=== PATIENT | male | born 1990 | race Caucasian/White ===

== ENCOUNTER 2020-04-13 08:17 | Observation (INO) ==
--- OUTSIDE RECORDS SUMMARY | 2020-04-13 08:20 | External Medical Summary | Continuity of Care Document ---
:1990 Author Name Shari Camarillo, Provider Address Unavailable Unavailable , Care Team Providers Name Role Phone Shari Camarillo, Provider Unavailable [email or web address] Active medical history not documented Allergies and Adverse Reactions Allergy history not documented Medications Medications not documented Procedures Procedures not documented Immunizations Immunizations not documented Plan of Treatment Planned Observations Planned Goals not documented Results No Known Results Results not documented
[2020-04-13] MEDS ORDERED: SODIUM CHLORIDE 0.9% 1000ML 1,000 ML IV ONE (08:40)
[2020-04-13] MEDS ORDERED: cefOXitin 2,000 MG/60 ML BAG IV STA (08:42)
--- NOTE | 2020-04-13 08:49 | Emergency Department Note ---
History of Present Illness General Chief complaint: Rectal Pain Stated complaint: abscess on back Time Seen by Provider: 04/13/20 08:26 Source: patient Mode of arrival: ambulatory Limitations: no limitations History of Present Illness Provider Complaint: + abscess/boil Onset (ago): 3 day(s) Tetanus up to date: yes Location: + buttocks Severity: severe Maximum Pain Intensity: 8 Current Pain Intensity: 8 Quality: + aching and + sharp Pain Consistency: + constant Relieved By: + none Exacerbated By: + palpation and + movement Context: + other (hx. perirectal abscess with fistula) Associated symptoms: + denies other symptoms Treatments prior to arrival: + other (epsom salt baths, cleansing the area, soap and water, warm soaks) HPI narrative: This 29-year-old male patient with significant past medical history of perirectal abscess with fistula presents to the emergency department today via private vehicle committed by his mother for evaluation of a perirectal abscess. Patient states he has had 3-4 in the past, and has been seen by Dr. Sanchez as well as colorectal surgery in [place], requiring multiple surgeries for some of his abscesses to be drained. He states he did have a colonoscopy "a few years ago" which confirmed a fistula, but was negative for any evidence of Crohn's disease. The patient states his last abscess requiring drainage was 3 years ago. He states he does frequently get sensation of abscesses, but usually they open on their own after warm soaks with Epsom salts and cleansing the area. The patient states 2 to 3 days ago, he developed pain and symptoms suspicious for abscess. He states he has developed worsening pain since that time. He has been taking Advil and Tylenol without relief of his symptoms. He denies any fever or chills. He denies any trauma. He denies any discharge or open wounds associated with abscess. He denies any abdominal pain. There is pain extending to the perineum. Patient rates his pain an 8/10. Home Medications Home Medications Medication Instructions Recorded Confirmed Type ibuprofen [Advil] 200 mg PO Q6H PRN 04/13/20 04/13/20 History Allergies Allergy/AdvReac Type Severity Reaction Status Date / Time No Known Allergies Allergy Severe NONE Unverified 04/13/20 09:04 Past Med/Surg History Medical History Perirectal abscess Social History Smoking Status: Never smoker Feels Safe at Home: Yes Review of Systems A total of 10 systems reviewed and were otherwise negative Physical Exam Vital Signs: Vital Signs - 24 hr 04/13/20 08:23 04/13/20 09:22 04/13/20 09:23 Temperature 37.4 C Temperature Source Oral Pulse Rate 103 H 83 Pulse Rate [Apical ] 84 Pulse Rate from Sp O2 Sensor Respiratory Rate 20 20 20 Respiratory Effort / Characteristics Non-Labored Sponta neous Respiratory Depth Normal Respiratory Patter n Regular Blood Pressure 145/90 H Blood Pressure [Le ft Arm] 135/94 Blood Pressure Sarah n 108 Blood Pressure Sarah n [Left Arm] 107 Pulse Oximetry 98 96 96 Oxygen Delivery Me thod Room Air Room Air Room Air Sepsis Recent Feve r Within 48 Hours No Sepsis New/Unexpla ined Change in Men erik Status No Sepsis Action Take n by Nursing No Action Required 04/13/20 09:37 04/13/20 09:40 04/13/20 10:00 Temperature Temperature Source Pulse Rate 88 83 80 Pulse Rate [Apical ] Pulse Rate from Sp O2 Sensor 88 82 80 Respiratory Rate 16 13 21 Respiratory Effort / Characteristics Respiratory Depth Respiratory Patter n Blood Pressure 125/82 130/83 Blood Pressure [Le ft Arm] Blood Pressure Sarah n 107 94 Blood Pressure Sarah n [Left Arm] Pulse Oximetry 99 98 98 Oxygen Delivery Me thod Sepsis Recent Feve r Within 48 Hours Sepsis New/Unexpla ined Change in Men erik Status Sepsis Action Take n by Nursing 04/13/20 10:01 04/13/20 10:30 Temperature Temperature Source Pulse Rate 79 80 Pulse Rate [Apical ] Pulse Rate from Sp O2 Sensor 79 82 Respiratory Rate 20 17 Respiratory Effort / Characteristics Respiratory Depth Respiratory Patter n Blood Pressure 159/95 H Blood Pressure [Le ft Arm] Blood Pressure Asrah n 117 Blood Pressure Sarah n [Left Arm] Pulse Oximetry 97 99 Oxygen Delivery Me thod Sepsis Recent Feve r Within 48 Hours Sepsis New/Unexpla ined Change in Men erik Status Sepsis Action Take n by Nursing Physical Exam: VITALS: Vitals are noted on the nurse's note and reviewed by myself. Vital signs stable. GENERAL: This is a 29-year-old white male, in no acute distress, nondiaphoretic, well-developed well-nourished. SKIN: The skin was without rashes, erythema, edema, or bruising. There is no tenting of the skin. Capillary refill less than 2 seconds. HEAD: Normocephalic atraumatic. EYES: Conjunctivae without injection, sclerae without icterus. NECK: Supple without nuchal rigidity. No lymphadenopathy. HEART: Regular rate and rhythm without murmurs gallops or rubs. LUNGS: Clear to auscultation bilaterally without wheezes, rales or rhonchi. No retractions or accessory muscle use. ABDOMEN: Positive bowel sounds x 4. Normal tympanic percussion. Soft, nontender, without masses or organomegaly. No guarding or rebound tenderness. RECTAL - No rectal fissures. No skin tags appreciated. No active bleeding. There is a perirectal abscess noted at the 9:00 position and extending to the perineum. There is erythema and induration, but no pointing or drainage. GENITOURINARY - No testicular tenderness to palpation appreciated diffusely. No palpable masses. MUSCULOSKELETAL: No muscle atrophy, erythema, or edema noted. Full range of motion without joint tenderness in all extremities. No tenderness to palpation. Normal gait. Strength 5/5 throughout. NEURO: Patient was alert and oriented to person place and time. Normal sensation to light and sharp touch. No focal neurological deficits. Course Course The patient was seen and evaluated as above. An order was placed for continuous cardiac monitoring. The monitor shows a sinus tachycardia at a rate of 103 bpm. IV access obtained, labs drawn. Patient medicated with IV fluids, morphine, and cefoxitin. Imaging performed and reviewed by myself and radiologist as noted. Labs reviewed by myself. I discussed the findings with the patient at bedside. I discussed the case with Alicia Smith PA-C from general surgery. She will see and evaluate the patient. I again spoke with Alicia, who advised that the patient would be going to the operating room for further management of the abscess. She did request the patient be given a dose of Zosyn as well as rapid Covid-19 test completed. Administered Medications Morphine Sulfate (Morphine Sulfate 4 Mg/Ml 1 Ml Carp\\Vial) 4 mg IV PRN PRN PRN Reason: Pain Stop: 04/27/20 08:39 Last Admin: 04/13/20 10:29 Dose: 4 mg Documented by: [id number] Admin: 04/13/20 09:17 Dose: 4 mg Documented by: [id number] Discontinued Medications Sodium Chloride (Nss 1000ml) 1,000 mls @ 999 mls/hr IV .Q1H1M ONE Stop: 04/13/20 09:40 Last Infusion: 04/13/20 10:20 Dose: 0 mls/hr Documented by: [id number] Admin: 04/13/20 09:16 Dose: 999 mls/hr Documented by: [id number] Cefoxitin Sodium (Mefoxin) 2,000 mg in 60 mls @ 100 mls/hr IV NOW STA Stop: 04/13/20 09:17 Last Infusion: 04/13/20 09:56 Dose: 0 mls/hr Documented by: [id number] Admin: 04/13/20 09:19 Dose: 100 mls/hr Documented by: [id number] Ioversol (Ioversol 100ml) 94 ml IV ONCE ONE Stop: 04/13/20 09:29 Last Admin: 04/13/20 09:28 Dose: 94 ml Documented by: [id number] Medical Decision Making Differential Diagnosis + abscess of skin or subcutaneous tissue, + cellulitis, + eczema and + necrotizing fasciitis In addition to the above, Luis's gangrene, perirectal abscess, perianal abscess, sepsis, fistula, among others were considered. Medical Records Attestation: I reviewed the patient's medical records. Home Medications Current Medication List: was personally reviewed by me Laboratory Data Attestation: I reviewed the patient's lab results. Mild leukocytosis of 12,000. No anemia or thrombocytopenia. Coags normal. Renal, hepatic function and electrolytes without significant abnormality. Lactic acid 1.0. Blood cultures pending. Result diagrams: 04/13/20 08:58 04/13/20 08:58 Lab Results 04/13/20 04/13/20 04/13/20 Range/Units 08:58 08:58 08:58 WBC 12.04 H (4.8-10.8) K/uL RBC 5.86 (4.7-6.1) M/uL Hgb 17.4 (14.0-18.0) g/dL POC Hgb (14.0-18.0) g/dl Hct 50.8 (42-52) % POC Hct (42-52) % MCV 86.7 (80-100) fL MCH 29.7 (25-34) pg MCHC 34.3 (32-36) g/dL RDW Std Deviation 41.3 (36.4-46.3) fL RDW Coeff of James 12.9 (11.5-14.5) % Plt Count 283 (130-400) K/uL MPV 9.4 (7.4-10.4) fL Immature Gran % (Auto) 0.3 % Neut % (Auto) 61.1 % Lymph % (Auto) 26.0 % Catron % (Auto) 10.1 % Eos % (Auto) 2.3 % Baso % (Auto) 0.2 % Neut # (Auto) 7.34 H (1.4-6.5) K/uL Lymph # (Auto) 3.13 (1.2-3.4) K/uL Catron # (Auto) 1.22 H (0.11-0.59) K/uL Eos # (Auto) 0.28 (0-0.5) K/uL Baso # (Auto) 0.03 (0-0.2) K/uL Immature Gran # (Auto) 0.04 H (0.00-0.02) K/uL PT 10.3 (9.0-12.0) Seconds INR 1.0 (0.9-1.1) APTT 29.5 (21.0-31.0) Seconds PTT Ratio 1.1 POC Sodium (135-144) mmol/L Sodium 140 (136-145) mmol/L POC Potassium (3.3-5.0) mmol/L Potassium 4.0 (3.5-5.1) mmol/L POC Chloride (101-112) mmol/L Chloride 108 H (98-107) mmol/L Carbon Dioxide 26 (21-32) mmol/L POC Total CO2 (24-31) mmol/L Anion Gap 6.0 (3-11) POC Anion Gap (16-25) mmol/L POC BUN (7-18) mg/dl BUN 17 (7-18) mg/dl Creatinine 1.10 (0.6-1.4) mg/dl POC Creatinine (0.6-1.3) mg/dl Est Cr Clr Drug Dosing 143.8 ml/min Est GFR ( Amer) 105.3 Est GFR (Non-Af Amer) 90.9 BUN/Creatinine Ratio 15.6 (10-20) Glucose 105 H (70-99) mg/dl POC Glucose (other) (70-99) mg/dl Lactate (0.4-2.0) mmol/L Calcium 9.4 (8.5-10.1) mg/dl POC Ioniz Calcium Napoleon (1.12-1.32) mmol/l Total Bilirubin 0.5 (0.2-1) mg/dl AST 24 (15-37) U/L ALT 70 (12-78) U/L Alkaline Phosphatase 75 (45-117) U/L Total Protein 7.9 (6.4-8.2) gm/dl Albumin 3.7 (3.4-5.0) gm/dl Globulin 4.1 H (2.5-4.0) gm/dl Albumin/Globulin Ratio 0.9 (0.9-2) 04/13/20 04/13/20 Range/Units 08:58 09:06 WBC (4.8-10.8) K/uL RBC (4.7-6.1) M/uL Hgb (14.0-18.0) g/dL POC Hgb 17.0 (14.0-18.0) g/dl Hct (42-52) % POC Hct 50 (42-52) % MCV (80-100) fL MCH (25-34) pg MCHC (32-36) g/dL RDW Std Deviation (36.4-46.3) fL RDW Coeff of James (11.5-14.5) % Plt Count (130-400) K/uL MPV (7.4-10.4) fL Immature Gran % (Auto) % Neut % (Auto) % Lymph % (Auto) % Catron % (Auto) % Eos % (Auto) % Baso % (Auto) % Neut # (Auto) (1.4-6.5) K/uL Lymph # (Auto) (1.2-3.4) K/uL Catron # (Auto) (0.11-0.59) K/uL Eos # (Auto) (0-0.5) K/uL Baso # (Auto) (0-0.2) K/uL Immature Gran # (Auto) (0.00-0.02) K/uL PT (9.0-12.0) Seconds INR (0.9-1.1) APTT (21.0-31.0) Seconds PTT Ratio POC Sodium 142 (135-144) mmol/L Sodium (136-145) mmol/L POC Potassium 4.0 (3.3-5.0) mmol/L Potassium (3.5-5.1) mmol/L POC Chloride 103 (101-112) mmol/L Chloride (98-107) mmol/L Carbon Dioxide (21-32) mmol/L POC Total CO2 24 (24-31) mmol/L Anion Gap (3-11) POC Anion Gap 20.0 (16-25) mmol/L POC BUN 19 H (7-18) mg/dl BUN (7-18) mg/dl Creatinine (0.6-1.4) mg/dl POC Creatinine 1.0 (0.6-1.3) mg/dl Est Cr Clr Drug Dosing ml/min Est GFR ( Amer) Est GFR (Non-Af Amer) BUN/Creatinine Ratio (10-20) Glucose (70-99) mg/dl POC Glucose (other) 108 H (70-99) mg/dl Lactate 1.0 (0.4-2.0) mmol/L Calcium (8.5-10.1) mg/dl POC Ioniz Calcium Napoleon 1.21 (1.12-1.32) mmol/l Total Bilirubin (0.2-1) mg/dl AST (15-37) U/L ALT (12-78) U/L Alkaline Phosphatase (45-117) U/L Total Protein (6.4-8.2) gm/dl Albumin (3.4-5.0) gm/dl Globulin (2.5-4.0) gm/dl Albumin/Globulin Ratio (0.9-2) Imaging Data Radiologist's Impression: CT OF THE ABDOMEN AND PELVIS WITH CONTRAST CLINICAL HISTORY: pain, perirectal abscess, hx. fistula COMPARISON STUDY: CT of the pelvis October 07, 2015. TECHNIQUE: Following IV administration of 94 mL of Optiray-320, axial images of the abdomen and pelvis were obtained from the lung bases to the proximal femurs. Images were reviewed in the axial, sagittal, and coronal planes. IV contrast was administered without complication. Automated exposure control was utilized for the study. A dose lowering technique was utilized adhering to the principles of ALARA. CT DOSE: 1818.42 mGy.cm FINDINGS: Lung bases are unremarkable. No pneumatosis, free air or portal venous gas is present. There is fatty infiltration of the liver. The spleen, adrenal glands, kidneys and pancreas are normal. There is no biliary or pancreatic ductal dilatation. There is no hydronephrosis. There is no evidence for a bowel obstruction. The caliber and wall thickness of small and large bowel are normal. There is no ascites. The appendix is normal. Note is made of a left anterior. No abscess that measures 2.9 x 1 cm. There is mild adjacent infiltration. This is at the 1:00 position. There is an adjacent fistulous tract to the medial fold of the left buttock. IMPRESSION: 1. 2.9 x 1 cm left anterior perianal abscess at the 1:00 position. Mild adjacent cellulitis. Associated fistula which extends to the medial fold of the left buttock. 2. Fatty infiltration of the liver. ACT 112: Negative or not required by law. Electronically signed by: Rashi Whitman M.D. 04/13/2020 9:56 AM Blood Pressure Blood Pressure Findings: Elevated blood pressure Blood Pressure Disposition: elevated BP felt to be situational MDM Narrative This 29-year-old male patient presents the emergency department today for evaluation of a perirectal abscess. The patient does have a history of the same and has required surgery in the past. He does indicate that he has a known fistula in the area he gets the recurrent abscesses. He is afebrile at this time. No systemic symptoms. He does have a mild leukocytosis of 12,000. CT imaging of the abdomen/pelvis is consistent with a meena-anal abscess with associ ated fistula extending to the medial fold of the left buttock. I did consult with general surgery. The patient was medicated with IV antibiotics. He will go to the operating room for ongoing management of this abscess. Please see surgery dictation. The chart was completed utilizing [employer] voice recognition software. Grammatical errors, random word insertions, pronoun errors, and incomplete sentences are an occasional consequence of this system due to software limitations, ambient noise, and hardware issues. Any formal questions or concerns about the content, text, or information contained within the body of this dictation should be directly addressed to the provider for clarification. Impression & Plan Perianal abscess, Perianal fistula Discharge Plan Visit Data Chief Complaint: Rectal Pain Stated Complaint: abscess on back ED Provider: Johnny Hoyt ED Midlevel Provider: Shavon Seaman Discharge Problem: Perianal abscess, Perianal fistula Patient Disposition: Being Evaluated by Surgeon Condition: Good Forms Stand Alone Forms: [facility] [employer] Prescriptions Prescriptions: No Action ibuprofen [Advil] 200 mg Tablet 200 mg PO Q6H PRN (Reason: Pain) RF: 0 Referrals Referrals: Hemal Corley MD [Primary Care Provider] -
[2020-04-13 09:14] LABS: Basophils # (auto) 0.03 K/uL (0-0.2); Basophils % (auto) 0.2 %; Eosinophils # (auto) 0.28 K/uL (0-0.5); Eosinophils % (auto) 2.3 %; Hematocrit (blood only) 50.8 % (42-52); Hemoglobin 17.4 g/dL (14.0-18.0); Immature Granulocytes # (auto) 0.04 K/uL (0.00-0.02); Immature Granulocytes % (auto) 0.3 %; Lymphocytes # (auto) 3.13 K/uL (1.2-3.4); Mean Corpuscular Hemoglobin 29.7 pg (25-34); Mean Corpuscular Hgb Conc 34.3 g/dL (32-36); Mean Corpuscular Volume 86.7 fL (80-100); Mean Platelet Volume 9.4 fL (7.4-10.4); Monocytes # (auto) 1.22 K/uL (0.11-0.59); Monocytes % (auto) 10.1 %; Neutrophils # (auto) 7.34 K/uL (1.4-6.5); Neutrophils % (auto) 61.1 %; Platelet Count 283 K/uL (130-400); RDW Coefficient of Variation 12.9 % (11.5-14.5); RDW Standard Deviation 41.3 fL (36.4-46.3); Red Blood Count 5.86 M/uL (4.7-6.1); White Blood Count 12.04 K/uL (4.8-10.8)
[2020-04-13] MEDS: MoRPHine SULFATE 4 MG/ML 1 ML CARP\\VIAL IV PRN ×2 (09:17→10:29)
[2020-04-13 09:19] LABS: iSTAT Ionized Calcium 1.21 mmol/l (1.12-1.32)
[2020-04-13 09:28] LABS: Partial Thromboplastin Ratio 1.1; Partial Thromboplastin Time 29.5 Seconds (21.0-31.0); Prothrombin Time 10.3 Seconds (9.0-12.0)
[2020-04-13] MEDS ORDERED: IOVERSOL 100ml IV ONE (09:28)
[2020-04-13 09:33] LABS: Albumin Level 3.7 gm/dl (3.4-5.0); BUN Creatinine Ratio 15.6 (10-20); Calcium 9.4 mg/dl (8.5-10.1); Creatinine Clr Calc Pharmacy 143.8 ml/min; Est GFR (African American) 105.3; Est GFR (Non-African American) 90.9
[2020-04-13 09:35] LABS: Albumin Globulin Ratio 0.9 (0.9-2); Bilirubin,Total 0.5 mg/dl (0.2-1); Globulin 4.1 gm/dl (2.5-4.0); Total Protein 7.9 gm/dl (6.4-8.2)
--- NOTE | 2020-04-13 09:57 | CT Scan Report ---
CT OF THE ABDOMEN AND PELVIS WITH CONTRAST CLINICAL HISTORY: pain, perirectal abscess, hx. fistula COMPARISON STUDY: CT of the pelvis October 07, 2015. TECHNIQUE: Following IV administration of 94 mL of Optiray-320, axial images of the abdomen and pelvi s were obtained from the lung bases to the proximal femurs. Images were reviewed in the axial, sagitt al, and coronal planes. IV contrast was administered without complication. Automated exposure contro l was utilized for the study. A dose lowering technique was utilized adhering to the principles of A PURNIMA. CT DOSE: 1818.42 mGy.cm FINDINGS: Lung bases are unremarkable. No pneumatosis, free air or portal venous gas is present. Ther e is fatty infiltration of the liver. The spleen, adrenal glands, kidneys and pancreas are normal. Th ere is no biliary or pancreatic ductal dilatation. There is no hydronephrosis. There is no evidence f or a bowel obstruction. The caliber and wall thickness of small and large bowel are normal. There is no ascites. The appendix is normal. Note is made of a left anterior. No abscess that measures 2.9 x 1 cm. There is mild adjacent infiltration. This is at the 1:00 position. There is an adjacent fistulou s tract to the medial fold of the left buttock. IMPRESSION: 1. 2.9 x 1 cm left anterior perianal abscess at the 1:00 position. Mild adjacent cellulitis. Associat ed fistula which extends to the medial fold of the left buttock. 2. Fatty infiltration of the liver. ACT 112: Negative or not required by law. Electronically signed by: Rashi Whitman M.D. 04/13/2020 9:56 AM
[2020-04-13] MEDS ORDERED: PIPERACILL/TAZOBAC CONSULT ACTIVE PRN ×2 (10:32→14:43)
[2020-04-13] MEDS ORDERED: PIPERACILLIN/TAZOBACTAM 4.5 GM/120 ML BAG IV ONE (10:32)
--- NOTE | 2020-04-13 10:32 | History & Physical Report ---
Date of Service April 13, 2020 Assessment & Plan (1) Perirectal abscess: Admission and Anticipated Discharge Date Admission Date: This is a 29y M with a PMH of perirectal abscess who presents to the [facility] ED on 04/13/20 with complaints of rectal pain. Patient has a history of meena-rectal abscesses sometimes requiring surgical intervention. In the ED patient underwent a CT a/p that revealed a 2.9x1 cm left meena-anal abscess with fistula formation and cellulitis. Area is erythematous and tender to palpation, no active drainage noted. I have discussed this case with Dr. Roberts and we will book him for an I&D of the area. IV Zosyn will be ordered and will keep NPO, last ate around 10pm last night. Rapid Covid-[address] Roberts will be by to obtain consent and patient is agreeable with the plan. History of Present Illness Primary Care Provider: Hemal Corley MD This is a 29y M with a PMH of perirectal abscess who presents to the [facility] ED on 04/13/20 with complaints of rectal pain. Patient states the pain started about 3 days ago which continued to worsen prompting him to come to the ED for further evaluation. He states he has a history of these abscesses dating over 8 years ago. Over this time patient states he has had 3-4 of them drained surgically, and the other times he has tried to manage them on his own with sitz baths and they open up and heal. Patient reports he was medically discharged from the for workup of these abscesses and saw a [facility] GI physician who performed workup with colonoscopy which did not reveal any concern for IBD. His father deals with these as well. His last "bad" abscess was about 3 years ago, and last self-managed abscess was about 8 mos ago now. He denies any fevers/chills, nausea/vomiting, change in bowel habits, blood in stool. The current abscess is not draining. He notes this is in a different spot than usual. Allergies Allergy/AdvReac Type Severity Reaction Status Date / Time No Known Allergies Allergy Severe NONE Unverified 04/13/20 09:04 Home Medications Home Medications Medication Instructions Recorded Confirmed Type ibuprofen [Advil] 200 mg PO Q6H PRN 04/13/20 04/13/20 History Past Med/Surg History Medical History Perirectal abscess Social History Smoking Status: Never smoker Feels Safe at Home: Yes Review of Systems Constitutional: no fever and no chills Gastrointestinal: no nausea, no vomiting and no change in bowel habits + rectal pain Physical Exam Physical Exam: awake/alert Gastrointestinal (Abdomen): + erythema and induration in left gluteal cleft, ttp, no active drainage noted Results & Data Results & Data ([facility]) Vital Signs (Past 12 Hours) Vital Signs Temp Pulse Pulse Resp BP BP Pulse Ox 04/13/20 10:30 80 17 159/95 H 99 04/13/20 10:01 79 20 97 04/13/20 10:00 80 21 130/83 98 04/13/20 09:40 83 13 98 04/13/20 09:37 88 16 125/82 99 04/13/20 09:23 84 20 135/94 96 04/13/20 09:22 83 20 96 04/13/20 08:23 37.4 C 103 H 20 145/[address] OF THE ABDOMEN AND PELVIS WITH CONTRAST CLINICAL HISTORY: pain, perirectal abscess, hx. fistula COMPARISON STUDY: CT of the pelvis October 07, 2015. TECHNIQUE: Following IV administration of 94 mL of Optiray-320, axial images of the abdomen and pelvis were obtained from the lung bases to the proximal femurs. Images were reviewed in the axial, sagittal, and coronal planes. IV contrast was administered without complication. Automated exposure control was utilized for the study. A dose lowering technique was utilized adhering to the principles of ALARA. CT DOSE: 1818.42 mGy.cm FINDINGS: Lung bases are unremarkable. No pneumatosis, free air or portal venous gas is present. There is fatty infiltration of the liver. The spleen, adrenal glands, kidneys and pancreas are normal. There is no biliary or pancreatic ductal dilatation. There is no hydronephrosis. There is no evidence for a bowel obstruction. The caliber and wall thickness of small and large bowel are normal. There is no ascites. The appendix is normal. Note is made of a left anterior. No abscess that measures 2.9 x 1 cm. There is mild adjacent infiltration. This is at the 1:00 position. There is an adjacent fistulous tract to the medial fold of the left buttock. IMPRESSION: 1. 2.9 x 1 cm left anterior perianal abscess at the 1:00 position. Mild adjacent cellulitis. Associated fistula which extends to the medial fold of the left buttock. 2. Fatty infiltration of the liver. ACT 112: Negative or not required by law. Electronically signed by: Rashi Whitman M.D. 04/13/2020 9:56 AM Supervising Physician Co-Signing Physician Notes As per Alicia Resendez physician assistant librarian Sebastian is a longstanding history of perianal abscesses in fact he was referred to [facility] years ago I did a colonoscopy to rule out possibility of Crohn's disease that was negative they recommended surgery and I suspect that may have been a fistulotomy with possibly a seton since the patient was told it will take about 6 or 8 months to recover it scared him and he did not want anything done Since that time he has had repeat perianal abscesses that he periodically drains on its own but today came to the ER because this perianal abscess that started 3 days ago did not drain and progressively got worse Left lateral approximately 3 o'clock position very tender area with cellulitis appears to be all extra sphincteric with some tenderness along the left gluteal area At this point we will proceed with incision and drainage under lithotomy position if there is a fistula which I suspect there would be we were not going to be addressing that issue at this time Permit was signed all questions were answered including anticipated recovery whether to go home today or keep him overnight PG Care Time/CCT Total # of Minutes Spent Total Time Spent with Patient: Total time spent is greater than 50% in coordination of care (as documented) at patient's floor/unit and/or counseling patient: Coding Level of Care Code 30033 OBS Care - Level 3 Diagnoses Perirectal abscess K61.1
--- NOTE | 2020-04-13 11:33 | Anesthesiology Consultation ---
Date of Service April 13, 2020 Assessment & Plan (1) Encounter for pre-operative examination: Chart Review Chart Review: Acceptable Risk for Surgery and Patient NOT seen in Pre Admission Testing Consults Requested none History Surgery Operation Date: 04/13/20 09:00 Proposed Procedures p Irrigation and Debridement of Carmen Anal Abscess - Diego Roberts MD Height/Weight Height: 6 ft 2 in Weight: 131 kg Allergies Allergy/AdvReac Type Severity Reaction Status Date / Time No Known Allergies Allergy Severe NONE Unverified 04/13/20 09:04 Medications Home Medications Medication Instructions Recorded Confirmed Last Taken ibuprofen [Advil] 200 mg PO Q6H PRN 04/13/20 04/13/20 04/12/20 22:00 400 mg Active Medications Generic Name Dose Route Start Last Admin Trade Name Freq PRN Reason Stop Dose Admin Morphine Sulfate 4 mg 04/13/20 08:40 04/13/20 10:29 Morphine Sulfate 4 Mg/Ml 1 Ml Carp\Vial IV 04/27/20 08:39 4 mg PRN PRN Administration Pain NPO Date Last Intake of Fluids: 04/12/20 Time Last Intake of Fluids: 23:00 Date Last Intake of Solids: 04/12/20 Time Last Intake of Solids: 21:00 Past Medical History Medical History Perirectal abscess Exercise / Class Metabolic Activity II 4-5 Yardwork/Stairs/Walk up hill Past Surgical History multiple I and D's for perianal abscesses Past Anesthesia History No Hx of Anesthesia Complications and No Family Hx of Anesthesia Complications History of PONV No Hx of PONV and No Hx of Motion Sickness Social History Smoking Status: Never smoker Do You Dip or Chew Tobacco: No Hx Alcohol Use: No Hx Substance Use: No Physical Exam Vital Signs Last Vital Signs Temp 37.2 C 04/13/20 11:50 Pulse 94 H 04/13/20 11:50 Resp 18 04/13/20 11:50 BP 135/92 04/13/20 11:50 Pulse Ox 99 04/13/20 11:50 Testing Laboratory Results 04/13/20 08:58 04/13/20 08:58 PT 10.3 Seconds (9.0-12.0) 04/13/20 08:58 INR 1.0 (0.9-1.1) 04/13/20 08:58 APTT 29.5 Seconds (21.0-31.0) 04/13/20 08:58 04/13/20 09:06 POC Glucose (other) 108 H
[2020-04-13] MEDS ORDERED: PROPOFOL IV EMULSION 10 MG/ML 20 ML VIAL IV ONE ×2 (11:44→12:55)
[2020-04-13] MEDS ORDERED: LIDOCAINE HCL 2% 2 ML VIAL/AMP(20MG/ML) INFIL ONE (11:44)
[2020-04-13] MEDS ORDERED: fentaNYL citrate 100 MCG/2 ML VIAL ONE ×2 (11:44→12:41)
[2020-04-13] MEDS ORDERED: DEXAMETHASONE SOD INJ 4 MG/ML VIAL ONE (11:44)
[2020-04-13] MEDS ORDERED: ONDANSETRON INJ 2 MG/ML 2 ML VIAL ONE (11:44)
[2020-04-13] MEDS ORDERED: MIDAZOLAM HCL 1 MG/ML 2ML VIAL ONE (11:44)
[2020-04-13] MEDS ORDERED: ONDANSETRON INJ 2 MG/ML 2 ML VIAL IV PRN ×2 (12:16→14:43)
[2020-04-13] MEDS ORDERED: HYDROmorphone INJ 1 MG/ML SYRINGE IV PRN (12:16)
[2020-04-13] MEDS ORDERED: ATROPINE SULFATE 0.1 MG/ML 10ML SYR IV PRN (12:16)
[2020-04-13] MEDS ORDERED: ePHEDrine sulfate 50 MG/ML AMP IV PRN (12:16)
[2020-04-13] MEDS ORDERED: BUPIVACAINE 0.5 % 5 MG/1 ML MPF 30ML VIAL ONE (12:22)
[2020-04-13] MEDS ORDERED: EPINEPHrine INJ 1 MG/ML AMP ONE (12:22)
[2020-04-13] MEDS ORDERED: BACITRACIN OINT 15 GM TUBE ONE (12:22)
[2020-04-13] MEDS ORDERED: GELATIN SPONGE SZ 100 ONE (12:23)
--- NOTE | 2020-04-13 13:01 | Post Operative Brief Note ---
PG Immediate Post Op with CF Date of Surgery April 13, 2020 Pre & Post Diagnosis Operation Date: 04/13/20 09:00 Pre-Op Diagnosis: Carmen anal abscess Post-Op Diagnosis: Carmen anal abscess I identified the patient and participated in the time-out.: Yes Procedure Operation Date: 04/13/20 09:00 Actual Procedures p Drainage of ischial rectal abscess(Not Applicable) - Diego Roberts MD Surgeon Diego Roberts MD Mill Attendant 0 Estimated Blood Loss 20 Findings Consistent with Post-Op Diagnosis
--- NOTE | 2020-04-13 13:09 | Operative Report ---
PG Post Operative Report Pre & Post Diagnosis Operation Date: 04/13/20 09:00 Pre-Op Diagnosis: Carmen anal abscess Post-Op Diagnosis: Carmen anal abscess I identified the patient and participated in the time-out.: Yes Procedure Operation Date: 04/13/20 09:00 Actual Procedures p Drainage of ischial rectal abscess(Not Applicable) - Diego Roberts MD The patient was brought into the operating room theater general trach anesthesia patient was placed in lithotomy position goal scrotal and perianal area and buttocks was prepped with Betadine solution properly draped the patient has systemic antibiotics on board a timeout was had the patient was identified this point we inspected the perianal area and as we had flatus Christa saw on physical exam prior to the operating room the patient abscess started about 2 to 3 o'clock position and actually extended up to 12 o'clock position on rectal exam the emergency did not feel any masses endoscopically I did not see any evidence of any fistula at this time therefore we made a radial incision approximately a centimeter and a half long into the abscess cavity which immediately evacuated we then extended the incision for about 3 cm total where I was able to place a finger and dissect out any loculation the abscess actually extended up into the ischio rectal and possibly the the abscess cavity was approximately golf ball size or more we irrigated and flushed it there we were sure that all the loculations were disrupted there is some bleeding along the skin edge that which cauterized at this point watch we irrigated clean that out I elected to pack it with 1/4 inch plain gauze held in place with 2 chromic sutures 4 x 4 and ABD pad followed by tape procedure was tolerated well by the patient estimated blood loss 25 cc patient was taken recovery room in good condition Surgeon Diego Roberts MD Explosives Detonator 0 Estimated Blood Loss 20 Findings Consistent with Post-Op Diagnosis Specimens none Description of Procedure merda I attest to the content of the Intraoperative Record and any orders documented therein. Any exceptions are noted below.
--- NOTE | 2020-04-13 13:09 | Operative Report ---
PG Post Operative Report Pre & Post Diagnosis Operation Date: 04/13/20 09:00 Pre-Op Diagnosis: Carmen anal abscess Post-Op Diagnosis: Carmen anal abscess I identified the patient and participated in the time-out.: Yes Procedure Operation Date: 04/13/20 09:00 Actual Procedures p Drainage of ischial rectal abscess(Not Applicable) - Diego Roberts MD Surgeon Diego Roberts MD Rod Drawer 0 Estimated Blood Loss 20 Findings Consistent with Post-Op Diagnosis I attest to the content of the Intraoperative Record and any orders documented therein. Any exceptions are noted below.
[2020-04-13] MEDS: fentaNYL citrate 100 MCG/2 ML VIAL IV PRN ×4 (13:21→13:37)
[2020-04-13] MEDS ORDERED: OXYCODONE/ACETAMINOPHEN 5mg/325mg TAB PO PRN (14:43)
[2020-04-13] MEDS ORDERED: IBUPROFEN 200 MG TAB PO PRN (14:43)
[2020-04-13] MEDS ORDERED: MoRPHine SULFATE 4 MG/ML 1 ML CARP\\VIAL IV PRN (14:53)
[2020-04-13] MEDS ORDERED: MoRPHine SULFATE 2 MG/ML CARP IV PRN (14:53)
[2020-04-13] MEDS: LACTATED RINGER'S 1,000 ML IV SCH (15:39)
--- NOTE | 2020-04-13 16:11 | Anesthesiology Progress Note ---
Date of Service April 13, 2020 Anesthesia Post Procedure Vital Signs Vital Signs: Temp Pulse Pulse Pulse Resp BP BP 04/13/20 15:35 36.7 C 85 20 141/89 H 04/13/20 15:05 36.9 C 89 16 123/83 04/13/20 14:35 36.9 C 97 H 20 130/80 04/13/20 14:20 84 18 115/88 04/13/20 14:10 90 20 131/75 04/13/20 14:00 36.7 C 87 18 136/81 04/13/20 13:50 90 18 144/77 H 04/13/20 13:40 88 20 137/90 04/13/20 13:30 89 18 138/84 04/13/20 13:20 94 H 20 128/92 04/13/20 13:11 36.8 C 93 H 18 121/86 04/13/20 11:50 37.2 C 94 H 18 135/92 04/13/20 11:31 81 16 118/84 04/13/20 11:30 83 24 04/13/20 11:02 85 16 04/13/20 11:01 84 20 118/68 04/13/20 11:00 79 15 04/13/20 10:31 90 18 04/13/20 10:30 80 17 159/95 H 04/13/20 10:01 79 20 04/13/20 10:00 80 21 130/83 04/13/20 09:40 83 13 04/13/20 09:37 88 16 125/82 04/13/20 09:23 84 20 135/94 04/13/20 09:22 83 20 04/13/20 08:23 37.4 C 103 H 20 145/90 H Pulse Ox 04/13/20 15:35 94 04/13/20 15:05 95 04/13/20 14:35 98 04/13/20 14:20 97 04/13/20 14:10 95 04/13/20 14:00 95 04/13/20 13:50 97 04/13/20 13:40 98 04/13/20 13:30 95 04/13/20 13:20 100 04/13/20 13:11 97 04/13/20 11:50 99 04/13/20 11:31 97 04/13/20 11:30 97 04/13/20 11:02 97 04/13/20 11:01 97 04/13/20 11:00 96 04/13/20 10:31 98 04/13/20 10:30 99 04/13/20 10:01 97 04/13/20 10:00 98 04/13/20 09:40 98 04/13/20 09:37 99 04/13/20 09:23 96 04/13/20 09:22 96 04/13/20 08:23 98 Pain Intensity Rectal: Pain Intensity: 3 Transfer of Care Handoff Completed per policy Notes Mental Status: alert / awake / arousable and participated in evaluation Patient Amnestic to Procedure: Yes Nausea / Vomiting: adequately controlled Pain: adequately controlled Airway Patency, RR, SpO2: stable & adequate BP & HR: stable & adequate Hydration State: stable & adequate Anesthetic Complications: no major complications apparent and Pt Satisfied with anesthetic care
[2020-04-13] MEDS: PIPERACILLIN/TAZOBACTAM 4.5 GM in DEXTROSE 5% 100 ML IV SCH ×2 (16:23→23:43)
[2020-04-13 18:14] LABS: Appearance Urine Clear (Clear); Bilirubin Urine Negative (Negative); Blood Urine Negative (Negative); Color Urine Yellow; Glucose Urine UA Negative (Negative); Ketones Urine Negative (Negative); Leukocyte Esterase Urine Negative (Negative); Nitrite Urine Negative (Negative); Protein Urine Negative (Negative); Specific Gravity Urine 1.015 (1.000-1.030); Urobilinogen Urine Negative (Negative)
[2020-04-13] MEDS: OXYCODONE/ACETAMINOPHEN 5mg/325mg TAB PO PRN (20:27)
[2020-04-14] MEDS: LACTATED RINGER'S 1,000 ML IV SCH (00:24)
[2020-04-14] MEDS: OXYCODONE/ACETAMINOPHEN 5mg/325mg TAB PO PRN ×2 (00:25→07:32)
[2020-04-14 06:03] LABS: Basophils # (auto) 0.01 K/uL (0-0.2); Basophils % (auto) 0.1 %; Hematocrit (blood only) 44.2 % (42-52); Hemoglobin 15.2 g/dL (14.0-18.0); Immature Granulocytes # (auto) 0.04 K/uL (0.00-0.02); Immature Granulocytes % (auto) 0.3 %; Lymphocytes # (auto) 1.78 K/uL (1.2-3.4); Lymphocytes % (auto) 13.6 %; Mean Corpuscular Hemoglobin 29.2 pg (25-34); Mean Corpuscular Hgb Conc 34.4 g/dL (32-36); Mean Platelet Volume 9.2 fL (7.4-10.4); Monocytes # (auto) 1.16 K/uL (0.11-0.59); Monocytes % (auto) 8.9 %; Neutrophils # (auto) 10.07 K/uL (1.4-6.5); Neutrophils % (auto) 77.1 %; Platelet Count 271 K/uL (130-400); RDW Coefficient of Variation 12.7 % (11.5-14.5); RDW Standard Deviation 39.6 fL (36.4-46.3); White Blood Count 13.06 K/uL (4.8-10.8)
[2020-04-14] MEDS: PIPERACILLIN/TAZOBACTAM 4.5 GM in DEXTROSE 5% 100 ML IV SCH (07:31)
--- NOTE | 2020-04-14 10:49 | Surgery Progress Note ---
Date of Service April 14, 2020 Assessment & Plan (1) Perianal abscess: POD#1 I&D of perianal abscess patient is progressing well tolerating a regular diet on IV zosyn, will transition to po augmentin to complete a course at home will remove surgical packing today plan for discharge to home with follow up in clinic within 1 week pt seen and examined with Dr. Roberts Admission and Anticipated Discharge Date Admission Date: April 13, 2020 Subjective Patient seen resting in bed. He offers no complaints. Tolerating a diet. Pain controlled. Physical Exam Physical Exam: awake/alert Respiratory: normal respiratory effort Gastrointestinal (Abdomen): surgical dressing in place, plans to remove today Results & Data ([facility]) Vital Signs (Past 12 Hours) Vital Signs Temp Pulse Resp BP Pulse Ox 04/14/20 07:59 36.8 C 91 H 18 128/85 95 04/14/20 03:48 36.6 C 65 16 130/76 100 04/13/20 23:00 36.9 C 86 15 127/66 96 PG Care Time/CCT Total # of Minutes Spent Total Time Spent with Patient: Total time spent is greater than 50% in coordination of care (as documented) at patient's floor/unit and/or counseling patient: Coding Level of Care Code None Diagnoses Perianal abscess K61.0
--- NOTE | 2020-04-15 14:55 | Discharge Summary ---
Date of Service April 15, 2020 Admission HPI Per Admitting Provider This is a 29y M with a PMH of perirectal abscess who presents to the [facility] ED on 04/13/20 with complaints of rectal pain. Patient states the pain started about 3 days ago which continued to worsen prompting him to come to the ED for further evaluation. He states he has a history of these abscesses dating over 8 years ago. Over this time patient states he has had 3-4 of them drained surgically, and the other times he has tried to manage them on his own with sitz baths and they open up and heal. Patient reports he was medically discharged from the for workup of these abscesses and saw a [facility] GI physician who performed workup with colonoscopy which did not reveal any concern for IBD. His father deals with these as well. His last "bad" abscess was about 3 years ago, and last self-managed abscess was about 8 mos ago now. He denies any fevers/chills, nausea/vomiting, change in bowel habits, blood in stool. The current abscess is not draining. He notes this is in a different spot than usual. Principal Diagnosis Perianal abscess Discharge Exam awake/alert Skin surgical dressing with serosang. drainage; packing was removed prior to discharge Discharge Data Allergies Allergy/AdvReac Type Severity Reaction Status Date / Time No Known Allergies Allergy Severe NONE Unverified 04/13/20 09:04 Consultations 04/13/20 10:10 Consult General Surgery Stat Procedures Performed Operation Date: 04/13/20 09:00 Actual Procedures p Drainage of ischial rectal abscess(Not Applicable) - Diego Roberts MD Ordered Studies 04/13/20 08:40 CT abd pelvis IV con only Stat Hospital Course (1) Perianal abscess: This is a 29y M with a PMH of perirectal abscess who presents to the [facility] ED on 04/13/20 with complaints of rectal pain. The patient underwent a CT a/p in the ED that showed a 2.9 x 1 cm left anterior perianal abscess at the 1:00 position with mild adjacent cellulitis. It also showed an associated fistula which extends to the medial fold of the left buttock. WBC 12. On examination the area of concern was tender to palpation and erythematous. Decision was made to take patient to the OR. He was kept NPO and started on IV zosyn. On 04/13 the patient went to the OR with Dr. Roberts for an incision and drainage of ischial rectal abscess. The patient tolerated the procedure well, see op note for full details. Packing was left in place. The patient recovered in the PACU and was transferred to the surgical nursing floor in stable condition for overnight observation. He was ordered for a regular diet, pain managed with prn medication, and he continued on IV abx. On POD#1 patient was feeling well. Surgical packing was removed. Dry gauze was placed in between buttocks to help soak up any drainage. His pain was controlled. He was deemed stable for discharge to home on 04/14/20 on a course of oral abx and provided with instructions to follow up in clinic within 1 week. (2) Perianal fistula: Total Time Total Time Spent Total Time Spent (In Minutes): 10 Discharge Plan Discharge Items Patient Disposition: Home - Self-Care Reason For Visit: POST OP I&D Discharge Diagnosis: incision and drainage of perianal abscess Condition on Discharge: Good Activity: Per Instructions section Lifting: No more than 25 pounds Lifting Comment: for a few days Bathing: No limitations Bathing Comment: you may continue taking sitz baths Exercise/Sports: Wait until after follow-up appointment Driving/Machine Use: do not resume driving while taking narcotics for pain Non-emergency contact: Surgeon Call non-emergency contact if: you have any medication questions, your symptoms worsen, your pain is not controlled, your pain is worsening, your pain is unusual for you, your pain is concerning for you, you have a fever, your temperature is above 101.5, your wound has increased redness, your wound has increased drainage and your wound pain has increased Follow-up/Referrals: Diego Roberts MD [Surgeon] - (Please call to schedule follow up in clinic within 1 week) Hemal Corley MD [Primary Care Provider] - Diet: Regular Addtl Attending Provider Instructions: Please complete the full course of antibiotic prescribed to you You may keep a gauze pad in your underwear to prevent drainage from getting on your clothing Do not take Tylenol and the narcotic Percocet concurrently for pain as they both contain Acetaminophen. You should NOT exceed 3grams of Acetaminophen within a 24 hour time period. You may also take Ibuprofen purchased over the counter if needed for pain. Ibuprofen 200mg-400mg orally every 6-8hours, as needed for pain. Pending Studies at Discharge: No Stand-Alone Forms: My [facility], Opioid Pain Management, Smoking Cessation Medications and DC Order Prescriptions: New amoxicillin-pot clavulanate [Augmentin] 875-125 mg tablet 1 tab PO Q12H Qty: 10 RF: 0 oxycodone-acetaminophen [Percocet] 5-325 mg tablet 1 - 2 tab PO .q4-6h PRN (Reason: pain, for initial therapy, max 6 tabs per day) Qty: 15 RF: 0 Continued ibuprofen [Advil] 200 mg Tablet 200 mg PO Q6H PRN (Reason: Pain) RF: 0 Discharge Orders: Discharge Order (Routine); Ordered 04/14/20 Ordered By: Alicia Conley/Other Patient Handouts: Preventing Deep Vein Thrombosis Admission Data Admit Date/Time: 04/13/20 13:11 Attending Provider: Diego Roberts Admit Provider: Diego Roberts Primary Care Provider: Hemal Corley Other Providers: Alicia Smith Other Interventions: Discharge Summary Assessment (RN) Last Done: 04/14/20 12:45 Coding Level of Care Code D/C Day Management <30 mins Diagnoses Perianal abscess K61.0 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
== END 2020-04-14 13:10 | disposition home or self-care (01) ==
LOC: ED 08:17 → OR 11:45 → 3E 11:45